=== PATIENT | female | born 1990 | race Caucasian/White ===

== ENCOUNTER 2019-02-07 11:48 | Emergency (ER) | payer OTHER ==
[2019-02-07 12:01] VITALS: BP 122/77; PULSE 99; TEMP 98.5; BMI 23.6
[2019-02-07] MEDS ORDERED: ONDANSETRON *ODT* 4 MG TABLET SL ONE (13:45)
[2019-02-07] MEDS ORDERED: ONDANSETRON *ODT* 4 MG TABLET ONE (13:47)
--- NOTE | 2019-02-07 13:49 | PDOC ---
History of Present Illness - General Chief Complaint: Vomiting/Diarrhea Stated Complaint: VOMITING/DIARRHEA Time Seen by Provider: 02/07/19 13:34 History Source: Patient, Family Exam Limitations: No Limitations - History of Present Illness Travel History: No Initial Comments: 02/07/19 13:43 Patient is here with complaints of acute onset of nausea and vomiting this morning. States woke up and had 3 episodes of vomiting and 2 episodes of diarrhea. Denies fever, denies any recent travel, denies any knowledge of tainted food ingestion or other family members that are sick. Timing/Duration: reports: intermittent Quality: reports: mild, moderate Abdominal Pain Onset Location: reports: epigastric, generalized abdomen Past History - Travel Traveled outside of the country in the last 30 days: No Close contact w/someone who was outside of country & ill: No - Past Medical History Allergies/Adverse Reactions: Allergies Allergy/AdvReac Type Severity Reaction Status Date / Time No Known Allergies Allergy Verified 10/05/14 02:32 Home Medications: Ambulatory Orders Vit/Iron Fum/Folic AC [ Tablet] 1 each PO DAILY 10/05/14 Ondansetron [Zofran *Odt*] 4 mg SL PRN PRN #14 od.tablet 02/07/19 Asthma: No Cancer: No Cardiac Disorders: No COPD: No Diabetes: No HTN: No Seizures: No Thyroid Disease: No - Immunization History Immunization Up to Date: Yes - Psycho Social/Smoking Cessation Hx Smoking History: Never smoked Have you smoked in the past 12 months: No Information on smoking cessation initiated: No Hx Alcohol Use: No Drug/Substance Use Hx: No Hx Substance Use Treatment: No Review of Systems - Review of Systems Able to Perform ROS?: Yes Is the patient limited [place] proficient: Yes Constitutional: Yes: Symptoms Reported, See HPI, Chills, Loss of Appetite, Malaise. No: Fever HEENTM: Yes: See HPI. No: Symptoms Reported, Eye Pain Respiratory: Yes: See HPI. No: Symptoms reported, Cough Cardiac (ROS): No: Symptoms Reported ABD/GI: Yes: Symptoms Reported, See HPI : Yes: See HPI. No: Symptoms Reported Musculoskeletal: Yes: Symptoms Reported Integumentary: Yes: Symptoms Reported All Other Systems: Reviewed and Negative *Physical Exam - Vital Signs Last Vital Signs Temp Pulse Resp BP Pulse Ox 98.5 F 99 H 18 122/77 100 12/18/19 11:59 02/07/19 11:59 02/07/19 11:59 02/07/19 11:59 02/07/19 11:59 - Physical Exam General Appearance: Yes: Appropriately Dressed, Apparent Distress HEENT: positive: MARISELA, Normal ENT Inspection, TMs Normal, Pharynx Normal Neck: positive: Supple. negative: Tender Gastrointestinal/Abdominal: positive: Normal Bowel Sounds, Tender (Mild diffuse tenderness, no rebound or guarding, no HSM), Soft. negative: Distended, Guarding, Rebound Musculoskeletal: positive: Normal Inspection. negative: CVA Tenderness Extremity: positive: Normal Capillary Refill, Normal Inspection, Normal Range of Motion. negative: Tender Integumentary: positive: Normal Color, Dry, Warm Neurologic: positive: drink box mechanic II-XII NML intact, Fully Oriented, Alert, Normal Mood/ Affect, Normal Response, Motor Strength 06/25 ED Progress Note - Progress Note Progress Note: 02/07/19 13:51 Gastroenteritis, probable viral. Will treat conservatively and provided Zofran for antinausea Discharge - Discharge Information Problems reviewed: Yes Clinical Impression/Diagnosis: Gastroenteritis Condition: Stable Disposition: HOME - Admission No - Additional Discharge Information Prescriptions: Ondansetron [Zofran *Odt*] 4 mg SL PRN PRN #14 od.tablet PRN Reason: vomiting - Follow up/Referral Referrals: Petros Trotter MD [Primary Care Provider] - - Patient Discharge Instructions Patient Printed Discharge Instructions: DI for Viral Gastroenteritis -- Adult Additional Instructions: Rest, drink lots of fluids: Teas, water, soups Leigh Ann barbara, carbonated beverages for the bubbles May try peppermint teas Avoid heavy , spicy or fatty foods until symptoms have resolved Avoid contact with others until fevers and symptoms resolved Lots of handwashing and good hygiene Continue [id number] medications for symptomatic relief Tylenol or Motrin for fever and pain May use Zofran-one tablet dissolved on tongue as needed for nauseousness. May repeat times one every 8 hours Followup with private physician in one to 2 days as needed Return to emergency department for worsened symptoms, fevers, dehydration - Post Discharge Activity Work/Back to School Note: Back to Work
== END 2019-02-07 14:20 | disposition home or self-care (01) ==
LOC: JERFT 11:48
DX: K52.9 Noninfective gastroenteritis and colitis, unspecified (principal)
CPT/HCPCS: 84703; 99281-25; Q0162

== ENCOUNTER 2023-10-31 06:00 | Inpatient (IN) | payer OTHER ==
[2023-10-31] MEDS: ELECTROLYTE-148 SOLN 500 ML IV SCH (06:30)
[2023-10-31 06:43] VITALS: BMI 27.9
[2023-10-31] MEDS: ELECTROLYTE-148 SOLN 1,000 ML IV SCH (07:00)
[2023-10-31] MEDS: CITRIC ACID/SODIUM CITRATE 30 ML UNIT-DOSE CUP PO ONE (07:30)
[2023-10-31] MEDS ORDERED: LIGASURE IMPACT TP ONE (07:50)
[2023-10-31] MEDS ORDERED: morphine SULFATE/PF 1 MG/2 ML (2cc Syringe - QUVA) ONE (08:20)
[2023-10-31] MEDS ORDERED: FENTANYL CITRATE/PF 50 MCG/ML VIAL ONE (08:21)
[2023-10-31] MEDS ORDERED: PHENYLEPHRINE HCL 10 MG/1 ML SINGLE DOSE VIAL ONE (08:37)
[2023-10-31] MEDS ORDERED: ceFAZolin SODIUM 1 GM VIAL ONE (08:37)
[2023-10-31] MEDS ORDERED: ONDANSETRON 4 MG/2 ML VIAL ONE (08:37)
[2023-10-31] MEDS ORDERED: KETOROLAC TROMETHAMINE 30 MG/1 ML VIAL ONE (08:37)
[2023-10-31] MEDS ORDERED: OXYTOCIN 10 UNITS/ML VIAL ONE (08:37)
[2023-10-31 09:37] LABS: CORD HCO3 24.4 mmHg (20-29); CORD pH 7.242 (7.14-7.44)
[2023-10-31 09:42] LABS: CORD HCO3 23.8 mmHg (20-29); CORD PCO2 48.7 mmHg (30-78); CORD pH 7.306 (7.14-7.44)
[2023-10-31] MEDS ORDERED: METHYLERGONOVINE MALEATE 0.2 MG/1 ML AMP IM PRN (09:59)
[2023-10-31] MEDS ORDERED: WITCH HAZEL 50% (TUCKS) 40 PAD/JAR PAD TP PRN (10:18)
[2023-10-31] MEDS ORDERED: IBUPROFEN 600 MG TABLET (FP) PO PRN ×2 (10:20→10:28)
[2023-10-31] MEDS ORDERED: ONDANSETRON 4 MG/2 ML VIAL IVPUSH PRN ×2 (10:20→10:28)
[2023-10-31] MEDS ORDERED: ACETAMINOPHEN 325 MG TABLET (FP) PO PRN ×2 (10:20→10:28)
[2023-10-31] MEDS ORDERED: morphine SULFATE/PF 1 MG/2 ML (2cc Syringe - QUVA) IT ONE (10:20)
[2023-10-31] MEDS ORDERED: OXYTOCIN 20 UNITS in 0.9% NS 20 UNIT/1,000 ML INFUS.BAG IV ONE (10:37)
[2023-10-31] MEDS: OXYTOCIN 20 UNITS in 0.9% NS 20 UNIT/1,000 ML INFUS.BAG IV SCH (10:52)
[2023-10-31] MEDS ORDERED: ACETAMINOPHEN INJECTION 100 ML ONE (10:52)
[2023-10-31] MEDS: ACETAMINOPHEN 1000 MG/100 ML BAG IVPB ONE (10:55)
[2023-10-31] MEDS: morphine SULFATE/PF 1 MG/2 ML (2cc Syringe - QUVA) EP ONE (10:56)
[2023-10-31] MEDS: IBUPROFEN 800 MG/8 ML IJ IVPB PRN (15:42)
[2023-10-31] MEDS: ACETAMINOPHEN 325 MG TABLET (FP) PO PRN (20:39)
[2023-10-31] MEDS: SIMETHICONE 80 MG TAB.CHEW (FP) PO PRN (20:39)
[2023-10-31] MEDS ORDERED: oxyCODONE HCL 5 MG TABLET PO PRN ×2 (21:59)
[2023-11-01 07:33] LABS: BASO % 1.4 % (0-2.0); EOS % 0.1 % (0-4.5); HEMATOCRIT 38.5 % (32.4-45.2); HEMOGLOBIN 12.9 GM/dL (10.7-15.3); LYMPH % 13.1 % (8-40); MCHC 33.5 g/dl (32.0-36.0); MEAN CELL VOLUME 92.6 fl (80-96); MEAN PLT VOLUME 6.6 fl (7.5-11.1); MONO % 7.7 % (3.8-10.2); NEUT % 77.7 % (42.8-82.8); PLATELET COUNT 282 10^3/uL (134-434); RBC 4.15 M/mm3 (3.60-5.2); WHITE BLOOD COUNT 9.3 K/mm3 (4.0-10.0)
[2023-11-01] MEDS: ENOXAPARIN NA (PORCINE) 40 MG/0.4 ML DISP.SYRIN SQ SCH (09:31)
[2023-11-01] MEDS: IBUPROFEN 600 MG TABLET (FP) PO PRN (09:31)
[2023-11-01] MEDS ORDERED: BISACODYL 10 MG SUPP.RECT RC PRN (09:59)
[2023-11-01] MEDS: SENNOSIDES/DOCUSATE COMBO (SENNA PLUS) TABLET (UD) PO PRN (20:49)
[2023-11-01 22:16] VITALS: RESP 18
[2023-11-03 07:50] LABS: BASO % 0.6 % (0-2.0); EOS % 0.4 % (0-4.5); HEMATOCRIT 35.7 % (32.4-45.2); HEMOGLOBIN 11.9 GM/dL (10.7-15.3); MCHC 33.4 g/dl (32.0-36.0); MEAN CELL VOLUME 92.8 fl (80-96); MEAN PLT VOLUME 6.8 fl (7.5-11.1); MONO % 10.4 % (3.8-10.2); NEUT % 72.6 % (42.8-82.8); PLATELET COUNT 267 10^3/uL (134-434); RBC 3.85 M/mm3 (3.60-5.2); WHITE BLOOD COUNT 6.8 K/mm3 (4.0-10.0)
[2023-11-03 10:11] VITALS: BP 110/74; PULSE 75; TEMP 98.7
== END 2023-11-03 12:50 | disposition home or self-care (01) | DRG 540 ==
LOC: JLDR 06:00 → J3W 12:10
PROVIDERS: ADMIT Obstetrics & Gynecology; ATTEND Obstetrics & Gynecology
PROC: 10D00Z1 Extraction of Products of Conception, Low, Open Approach (ICD-10-PCS; principal; 2023-10-31)
PROC: 0UT70ZZ Resection of Bilateral Fallopian Tubes, Open Approach (ICD-10-PCS; 2023-10-31)
DX: O34.211 Maternal care for low transverse scar from previous cesarean delivery (principal); Z3A.39 39 weeks gestation of pregnancy; Z37.0 Single live birth
CPT/HCPCS: 36415; 36600; 59409; 80053; 82803; 85025; 85610; 85730; 86780; 86850; 86900; 86901; 88305-TC; 88307-TC; 94010; J0131